=== PATIENT | female | born 1965 | race Caucasian/White ===

== ENCOUNTER 2018-05-15 16:10 | Emergency (ER) | payer MEDICARE, MEDICAID ==
[~2018-05-15] VITALS: Ht 165.1 cm; Wt 101.0 kg
[~2018-05-15 16:10] MED LIST: LAMO100T65 PO; NICO2GUM47 BC; QUET25TA PO; QUET50TA22 PO; QUETIAPINE PO
[2018-05-15 16:56] VITALS: BP 137/89
== END 2018-05-15 19:43 | disposition left against medical advice (07) ==
LOC: ER 16:10
DX: Z76.0 Encounter for issue of repeat prescription (principal); Z53.21 Procedure and treatment not carried out due to patient leaving prior to being seen by health care provider

== ENCOUNTER 2018-05-26 03:34 | Emergency (ER) | payer MEDICARE, MEDICAID ==
[~2018-05-26] VITALS: Ht 165.1 cm; Wt 104.0 kg
[2018-05-26 03:38] VITALS: BP 142/68
== END 2018-05-26 04:23 | disposition home or self-care (01) ==
LOC: ER 03:35
DX: J22 Unspecified acute lower respiratory infection (principal); Z60.2 Problems related to living alone; Z88.8 Allergy status to other drugs, medicaments and biological substances; Z79.899 Other long term (current) drug therapy
CPT/HCPCS: 99281

== ENCOUNTER 2018-10-18 17:02 | Emergency (ER) | payer MEDICARE, MEDICAID | END 2018-10-18 17:48 | disposition left against medical advice (07) | LOC: ER 17:02 | DX: R45.851 Suicidal ideations (principal); Z53.21 Procedure and treatment not carried out due to patient leaving prior to being seen by health care provider ==

== ENCOUNTER 2019-01-27 20:36 | Emergency (ER) | payer MEDICARE, MEDICAID ==
[~2019-01-27] VITALS: Ht 165.1 cm; Wt 104.9 kg
[~2019-01-27 20:36] MED LIST changes: -NICO2GUM47 BC; +NICO2GUM48 BC
[2019-01-27 20:51] VITALS: BP 148/94
== END 2019-01-27 23:14 | disposition left against medical advice (07) ==
LOC: ER 20:37
DX: R45.851 Suicidal ideations (principal); Z53.21 Procedure and treatment not carried out due to patient leaving prior to being seen by health care provider

== ENCOUNTER 2019-05-21 09:45 | Emergency (ER) | payer MEDICARE, MEDICAID ==
[~2019-05-21] VITALS: Ht 165.1 cm; Wt 108.0 kg
--- NOTE | 2019-05-21 10:20 | NUR ---
Pt brought straight back from triage. She is tearful and states hse is having a panic attack. She says she came here for her children because she promised them she would not hurt herself.
[2019-05-21] MEDS ORDERED: OMEP40CA13 PO (10:40)
--- NOTE | 2019-05-21 10:41 | NUR ---
PT INTERMITTENTLY CRYING, STATING "I FEEL LIKE IM GOING TO FREAK OUT". RN AWARE.
[2019-05-21] MEDS ORDERED: BACL20TA PO (10:45)
[2019-05-21] MEDS ORDERED: LORazepam 1 MG tablet PO ONE (10:50)
[2019-05-21] MEDS ORDERED: QUET200T5 PO (10:56)
[2019-05-21] MEDS ORDERED: nicotine prolacrilex 2mg gum BC PRN (11:00)
[2019-05-21] MEDS ORDERED: QUEtiapine 25mg tablet PO PRN (11:00)
--- NOTE | 2019-05-21 11:03 | NUR ---
Client calm after taking ativan and laying on right side
[2019-05-21] MEDS ORDERED: QUET150T4 PO (11:23)
[2019-05-21] MEDS ORDERED: LAMO100T2 PO (11:25)
[2019-05-21 11:49] LABS: URINE HCG NEGATIVE (NEG)
[2019-05-21 12:03] LABS: URINE AMPHETAMINE SCREEN NEGATIVE (Neg); URINE BARBITUATE SCREEN NEGATIVE (Neg); URINE BENZODIAZEPINES SCREEN NEGATIVE (Neg); URINE CANNABINOID SCREEN NEGATIVE (Neg); URINE COCAINE SCREEN NEGATIVE (Neg); URINE METHADONE SCREEN NEGATIVE (Neg); URINE OPIATE SCREEN NEGATIVE (Neg); URINE PHENCYCLIDINE SCREEN NEGATIVE (Neg)
--- NOTE | 2019-05-21 12:20 | NUR ---
[facility] IS HERE DRAWING PTS BLOOD.
[2019-05-21 12:39] LABS: BASOPHILS % (AUTO) 0.7 % (0-1); EOSINOPHILS # (AUTO) 0.1 X10'3 (0-0.9); EOSINOPHILS % (AUTO) 0.8 % (0-6); HEMATOCRIT 44.9 % (35.0-45.0); HEMOGLOBIN 15.5 g/dl (12.0-16.0); LYMPHOCYTES # (AUTO) 2.4 X10'3 (1.1-4.8); LYMPHOCYTES % (AUTO) 35.5 % (21-51); MEAN CORPUSCULAR HEMOGLOBIN 32.8 PG (27.0-31.0); MEAN CORPUSCULAR HGB CONC 34.4 g/dL (33.0-36.5); MEAN CORPUSCULAR VOLUME 95.3 FL (78-98); MEAN PLATELET VOLUME 7.8 FL (7.4-10.4); MONOCYTES # (AUTO) 0.4 X10'3 (0-0.9); MONOCYTES % (AUTO) 5.6 % (2-12); NEUTROPHILS # (AUTO) 3.8 X10'3 (1.8-7.7); NEUTROPHILS % (AUTO) 57.4 % (42-75); PLATELET COUNT 185 X10'3 (140-440); RED BLOOD COUNT 4.71 X10'6 (4.20-5.60); RED CELL DISTRIBUTION WIDTH 13.8 % (11.5-14.5); WHITE BLOOD COUNT 6.6 X10'3 (4.5-11.0)
[2019-05-21 12:50] LABS: ALANINE AMINOTRANSFERASE 21 U/L (12-78); ALBUMIN 3.7 G/DL (3.4-5.0); ALBUMIN/GLOBULIN RATIO 1.1 (1.1-1.5); ALKALINE PHOSPHATASE 108 IU/L (46-116); ANION GAP 5 (8-16); ASPARTATE AMINO TRANSFERASE 15 U/L (10-37); BILIRUBIN,TOTAL 0.3 MG/DL (0.1-1.0); BLOOD UREA NITROGEN 17 MG/DL (7-18); BUN/CREATININE RATIO 14.4 (6.6-38.0); CALCIUM 9.1 MG/DL (8.5-10.1); CHLORIDE 107 MMOL/L (99-107); CREATININE 1.18 MG/DL (0.40-0.90); ETHANOL < 0.010 GM/DL (0.0-0.010); GLUCOSE 90 MG/DL (70-104); POTASSIUM 4.1 MMOL/L (3.5-5.1); SODIUM 142 MMOL/L (135-145); eGFR 48 ML/MIN
--- NOTE | 2019-05-21 13:13 | NUR ---
Pt's is visiting
--- NOTE | 2019-05-21 13:37 | NUR ---
PACKET FAXED TO [facility]
--- NOTE | 2019-05-21 14:01 | NUR ---
Pt asleep on right side in no apparent distress. Respirations are even and unlabored.
--- NOTE | 2019-05-21 15:04 | NUR ---
[facility] at bedside
[2019-05-21] MEDS ORDERED: baclofen 10mg tablet PO SCH (16:00)
--- NOTE | 2019-05-21 16:44 | NUR ---
Pt asleep on right side in no apparent distress. Respirations are even and unlabored.
[2019-05-21 17:12] VITALS: BP 132/85
--- NOTE | 2019-05-21 17:43 | NUR ---
Pt is now asking to leave and want to see [facility] again
--- NOTE | 2019-05-21 18:38 | NUR ---
Received report and assumed care of patient from ZAHIDA Mccollum.
--- NOTE | 2019-05-21 18:45 | NUR ---
The patient is lying in bed with at bedside. She's voicing complaints that she has to sit here "doing nothing for hours at a time." The patient now believes that she made a mistake coming here, and is upset, "nobody's doing anything to help me."
--- NOTE | 2019-05-21 19:38 | NUR ---
Anaya from [facility] is interviewing the patient for possible acceptance.
--- NOTE | 2019-05-21 19:56 | NUR ---
Client to be admitted to [facility] for SI per HERIBERTO Zurita/Dr. Princess Adams,
[2019-05-21] MEDS ORDERED: lamoTRIgine 100mg tablet PO SCH (21:00)
[2019-05-21] MEDS ORDERED: non-formulary drug (Quetiapine Fumarate 1 TAB) PO SCH (21:00)
[2019-05-21] MEDS ORDERED: quetiapine 100mg tablet PO SCH (21:00)
--- NOTE | 2019-05-21 21:09 | NUR ---
Patient has fallen asleep on her right side. RR even and unlabored. No s/s of distress.
--- NOTE | 2019-05-21 22:14 | NUR ---
The patient continues to sleep. RR unlabored. No s/s of distress.
[2019-05-22] MEDS ORDERED: pantoprazole 40mg Tablet.DR PO SCH (08:00)
[2019-05-25] MEDS ORDERED: NICO-687 TD (15:02)
[2019-05-25] MEDS ORDERED: LURA20TA PO (15:02)
== END 2019-05-21 22:34 ==
LOC: ER 09:45
DX: F32.9 Major depressive disorder, single episode, unspecified (principal); R45.851 Suicidal ideations; Z88.8 Allergy status to other drugs, medicaments and biological substances; Z79.899 Other long term (current) drug therapy
CPT/HCPCS: 36415; 80053; 80305; 80320; 81025; 85025; 99285

== ENCOUNTER 2019-11-15 09:13 | Emergency (ER) | payer MEDICARE, MEDICAID ==
[~2019-11-15] VITALS: Ht 165.1 cm; Wt 100.0 kg
[~2019-11-15 09:13] MED LIST changes: +BACL20TA PO; +LAMO100T2 PO; -LAMO100T65 PO; +LURA20TA PO; +NICO-687 TD; -NICO2GUM48 BC; +OMEP40CA13 PO; -QUET25TA PO; -QUET50TA22 PO; -QUETIAPINE PO
[2019-11-15 09:14] VITALS: BP 133/82
[2019-11-15] MEDS ORDERED: CEPH-572 PO (10:21)
== END 2019-11-15 10:32 | disposition home or self-care (01) ==
LOC: ER 09:14
DX: S80.861A Insect bite (nonvenomous), right lower leg, initial encounter (principal); F31.9 Bipolar disorder, unspecified; Z60.2 Problems related to living alone; Z88.8 Allergy status to other drugs, medicaments and biological substances; Z79.899 Other long term (current) drug therapy; W57.XXXA Bitten or stung by nonvenomous insect and other nonvenomous arthropods, initial encounter; Y93.89 Activity, other specified; Y92.89 Other specified places as the place of occurrence of the external cause; Y99.8 Other external cause status
CPT/HCPCS: 99283

== ENCOUNTER 2023-07-09 08:56 | Emergency (ER) | payer MEDICARE, MEDICAID ==
[~2023-07-09 08:56] MED LIST changes: -LURA20TA PO; +LURA20TA8 PO; -OMEP40CA13 PO; +OMEP40CA21 PO
== END 2023-07-09 11:05 | disposition left against medical advice (07) ==
LOC: ER 08:56
DX: N39.0 Urinary tract infection, site not specified (principal); M54.9 Dorsalgia, unspecified; Z53.21 Procedure and treatment not carried out due to patient leaving prior to being seen by health care provider

== ENCOUNTER 2024-01-20 09:45 | Emergency (ER) | payer BC, MEDICAID ==
[~2024-01-20] VITALS: Ht 175.3 cm; Wt 121.4 kg
[2024-01-20 10:17] VITALS: TEMP 97.6
[2024-01-20 11:33] VITALS: BP 139/71; PULSE 76; RESP 16; O2SAT 97
== END 2024-01-20 11:37 | disposition home or self-care (01) ==
LOC: ER 09:46
DX: R22.9 Localized swelling, mass and lump, unspecified (principal); F32.A Depression, unspecified; Z88.8 Allergy status to other drugs, medicaments and biological substances; Z79.899 Other long term (current) drug therapy; Z60.2 Problems related to living alone
CPT/HCPCS: 99281

== ENCOUNTER 2024-07-11 12:04 | Emergency (ER) | payer MEDICARE, MEDICAID | END 2024-07-11 15:32 | disposition left against medical advice (07) | LOC: ER 12:04 | DX: H57.10 Ocular pain, unspecified eye (principal); Z53.21 Procedure and treatment not carried out due to patient leaving prior to being seen by health care provider; Z88.8 Allergy status to other drugs, medicaments and biological substances ==

== ENCOUNTER 2024-12-23 08:00 | Emergency (ER) | payer MEDICARE, MEDICAID ==
[~2024-12-23] VITALS: Ht 165.1 cm; Wt 99.6 kg
[2024-12-23] MEDS: ketorolac trometh 30MG/ML vial 30 MG/ML VIAL IM ONE (09:35)
[2024-12-23] MEDS ORDERED: CYCL-1 PO (09:36)
--- NOTE | 2024-12-23 09:36 | Physician Documentation ---
History of Present Illness ~ Chief Complaint: Back Pain Stated Complaint: BACK PAIN Time Seen by MD: 09:13 OK to notify your PCP?: Yes Primary Medical Doctor: [facility] Source: patient Mode of Arrival: POV Exam Limitations: no limitations HPI 59-year-old female who is here with lower back pain. Patient states she is requesting an injection of Toradol for back pain. She reports long history of back pain but states the pain has recently been increased no explanation for this no injuries. No urinary retention, bowel or bladder incontinence, clumsiness of lower extremities, weakness. No chest pain or shortness of breath. No urinary symptoms. Medication Reconciliation Allergies: Coded Allergies: aripiprazole (Verified Allergy, Unknown, "I lock up", 01/20/24) Scheduled Baclofen (Baclofen), 1 TAB PO Q8H, (Reported) Cyclobenzaprine* (Cyclobenzaprine*), 1 TAB PO HS Lamotrigine* (Lamictal*), 3 TAB PO HS, (Reported) Lurasidone HCl (Latuda), 60 MG PO QDD Nicotine 21 MG Patch* (Habitrol 21 MG Patch*), 1 PATCH TD DAILY Omeprazole (Prilosec), 1 CAP PO QAM, (Reported) Past Medical History Past Medical History: UTI, Bipolar, Depression Past Surgical History: noncontributory Alcohol Use: None Drug Use: none Lives with: Alone Lives In: Home Review of Systems All Other Systems at this time: Reviewed and Negative Physical Exam Physical Exam Vital Signs: Temperature: 98.0, Source: Temporal, Heart Rate: 83, Respiratory Rate: 16, BP: 144/85, Pulse Oximetry: 94, Weight: 99.600 Oxygen Flow Rate: 0 Physical Exam General Appearance: Alert, WD/WN. NAD. HEENT: NCAT, PERRL, EOMI. Neck: Supple, trachea midline. Cardiovascular: RRR. No m/r/g. Lungs: CTAB. Breathing unlabored Spine: Tenderness over paraspinal muscles of lumbar spine, no midline tenderness, able to go from a lying down to a seated and standing position with out assistance or using a hand rails on the gurney. Ambulating around exam room without assistance. Extremities: Normal inspection. No edema. Skin: Warm/dry, normal color Neurological: Alert and oriented x4, normal gait. Psychiatric: Affect congruent with mood. Progress Results/Orders Results/Orders Completed Orders - CLARISSA MORGAN Ketorolac Trometh 30mg/Ml Vial (Toradol (12/23/24 09:25) Vital Signs 12/23/24 12/23/24 12/23/24 08:03 09:35 09:39 Temp 98.0 98.0 Pulse 83 68 Resp 16 16 16 B/P (MAP) 144/85 140/87 Pulse Ox 94 99 O2 Flow Rate 0 Medical Decision Making Differential Dx:Considerations: Include: AAA, Aortic dissection, , Appendicitis, Bowel obstruction, Cholelithiasis, Cholangitis, DJD, Ectopic , Fracture, Hepatitis, HNP, Musculoskeletal pain, Pancreatitis, Pyelonephritis, Strain, Urinary obstruction, Urolithiasis, Ovarian torsion, Other Departure Time of Disposition: 09:36 Disposition: 01 HOME / SELF CARE / HOMELESS Impression: Primary Impression: Low back pain Qualified Codes: M54.50 - Low back pain, unspecified Condition: Stable Discharge Instructions: Acute Back Pain, Adult Additional Instructions: f/u with pcp in 1week Referrals: NO PRIMARY CARE PROVIDER (PCP) Prescriptions Cyclobenzaprine* (Cyclobenzaprine*) 10 Mg Tablet 1 TAB PO HS for muscle spasms for 14 Days, #14 TAB 0 Refills Prov: CLRAISSA MORGAN 12/23/24 Education Educated: Patient Educated regarding: diagnosis, treatment, need for follow up Signature Scribe Signature: x Attestation: CLARISSA Zamora Dec 23, 2024 09:36
[2024-12-23 09:39] VITALS: BP 140/87; PULSE 68; RESP 16; TEMP 98; O2SAT 99
== END 2024-12-23 09:38 | disposition home or self-care (01) ==
LOC: ER 08:00
DX: M54.50 Low back pain, unspecified (principal); F31.9 Bipolar disorder, unspecified; Z87.440 Personal history of urinary (tract) infections
CPT/HCPCS: 96372; 99283; J1885